=== PATIENT | male | born 1975 | race African-American/Black ===

== ENCOUNTER 2016-08-29 07:00 | Emergency (ER) | payer MEDICAID ==
[~2016-08-29] VITALS: Ht 167.6 cm; Wt 60.0 kg
[~2016-08-29 07:00] MED LIST: BACT800T5 PO; CEPH500C3 PO; IBUP800T23 PO
[2016-08-29 07:03] VITALS: BP 139/92; PULSE 76; RESP 16; TEMP 98.6; O2SAT 100
--- NOTE | 2016-08-29 07:32 | PD ---
HPI Chief Complaint: Musculoskeletal Complaint Time Seen by Provider: 07:21 Travel History International Travel<30 days: No Contact w/Intl Traveler<30days: No Traveled to known affect area: No History of Present Illness HPI 41-year-old male complains of right-sided neck pain. Patient was throwing heavy objects 3 days ago and started having immediate sharp pain on the right sided neck with radiation to the right arm. Patient states that the pain got worse since then. Patient states the pain is worse with neck movement and right arm movement. Patient denies any focal weakness and numbness of extremity. Patient denies any fever chills. Patient denies any fall. PFSH Past Medical History Medical History: Denies Significant Hx Hx Anticoagulant Therapy: No Cardiovascular Problems: No Chemotherapy: No Cerebrovascular Accident: No Diabetes: No Diminished Hearing: No Respiratory: No Influenza Vaccination: No Past Surgical History Surgical History: No Previous Surgery Social History Alcohol Use: No Tobacco Use: Yes (07/25 PPD) Substance Use: No Allergies-Medications (Allergen,Severity, Reaction): Coded Allergies: No Known Allergies (Verified , 08/29/16) Reported Meds & Prescriptions Reported Meds & Active Scripts Active No Active Prescriptions or Reported Medications Review of Systems General / Constitutional: No: Fever Eyes: No: Visual changes HENT: Positive: Neck Pain, No: Headaches Cardiovascular: No: Chest Pain or Discomfort Respiratory: No: Shortness of Breath Gastrointestinal: No: Abdominal Pain Genitourinary: No: Dysuria Musculoskeletal: No: Pain Skin: No Rash Neurologic: No: Weakness Psychiatric: No: Depression Endocrine: No: Polydipsia Hematologic/Lymphatic: No: Easy Bruising Physical Exam Narrative GENERAL: Well-nourished, well-developed patient. SKIN: Warm and dry. HEAD: Normocephalic. EYES: No scleral icterus. No injection or drainage. NECK: Supple, trachea midline. No JVD or lymphadenopathy. Patient has moderate tenderness on palpation muscular area on the right side the neck and shoulder pad area. No shoulder joint tenderness. No midline tenderness on the cervical spine. No redness no heat. CARDIOVASCULAR: Regular rate and rhythm without murmurs, gallops, or rubs. RESPIRATORY: Breath sounds equal bilaterally. No accessory muscle use. GASTROINTESTINAL: Abdomen soft, non-tender, nondistended. MUSCULOSKELETAL: No cyanosis, or edema. BACK: Nontender without obvious deformity. No CVA tenderness. Neurologic exam normal. Data Data Last Documented VS Vital Signs Date Time Temp Pulse Resp B/P Pulse Ox O2 Delivery O2 Flow Rate FiO2 08/29/16 07:03 98.6 76 16 139/92 100 Orders Spine, Cervical - Ltd (Ap&Lat) (08/29/16 07:26) [facility] Medical Decision Making Medical Screen Exam Complete: Yes Emergency Medical Condition: Yes Differential Diagnosis Differential diagnosis including musculoskeletal spasm, fracture, dislocation. Narrative Course 41-year-old male with right-sided neck pain with radiation to right arm. Diagnosis Primary Impression: Cervical strain, acute Qualified Code: S16.1XXA - Cervical strain, acute, initial encounter Patient Instructions: General Instructions Additional Instructions: Moist heat. Take medications as needed. Follow-up with orthopedist if persistent problem. Avoid heavy lifting for one week. Med/Other Pt SpecificInfo: Prescription(s) given Scripts Methocarbamol (Robaxin)750 Mg Tpi998 Mg PO QID #40 TAB Prov:Jamel Mccoy MD 08/29/16 Meloxicam (Mobic)15 Mg Tab15 Mg PO DAILY #20 TAB Prov:Jamel Mccoy MD 08/29/16 Disposition: 01 DISCHARGE HOME Condition: Stable Jamel Mccoy MD Aug 29, 2016 07:32
[2016-08-29] MEDS ORDERED: ROBA750T PO (08:21)
[2016-08-29] MEDS ORDERED: MOBI15TA PO (08:21)
--- NOTE | 2016-08-29 08:56 | RADHPO ---
EXAM DATE/TIME: 08/29/2016 07:40 [place] COMPARISON: No previous studies available for comparison. INDICATIONS : Neck pain. MEDICAL HISTORY : None. SURGICAL HISTORY : None. ENCOUNTER: Initial ACUITY: 3 days PAIN SCORE: 10/10 LOCATION: Cervical spine. FINDINGS: Two projection examination was performed. There is straightening of the normal lordotic curvature whi ch may be positional. Minimal loss of height at C5-6 appears to be isolated. Vertebral body and disc heights are otherwise maintained. No fracture or listhesis. Prevertebral soft tissues are within norm al limits. The dens is intact and the lateral masses are symmetric. CONCLUSION: 1. Early degenerative disc disease with some isolated loss of disc height at C5-6. 2. Straightening of the normal lordotic curvature which is probably positional. 3. No acute fracture. Laron Ramon MD on August 29, 2016 at 8:51 Board Certified Radiologist. This report was verified electronically.
== END 2016-08-29 08:34 | disposition home or self-care (01) ==
LOC: PHED 07:00
DX: S16.1XXA Strain of muscle, fascia and tendon at neck level, initial encounter (principal); F17.210 Nicotine dependence, cigarettes, uncomplicated; M79.621 Pain in right upper arm; X50.0XXA Overexertion from strenuous movement or load, initial encounter; X50.3XXA Overexertion from repetitive movements, initial encounter; Y93.89 Activity, other specified; Y92.9 Unspecified place or not applicable
CPT/HCPCS: 72040; 99283